=== PATIENT | male | born 1985 | race African-American/Black ===

== ENCOUNTER 2018-02-15 14:06 | Emergency (ER) | payer OTHER ==
[2018-02-15] MEDS: IBUPROFEN 800 MG TAB PO (15:14)
[2018-02-15] MEDS: AZITHROMYCIN 250 MG TAB PO (15:15)
[2018-02-15] MEDS: CEFTRIAXONE 250 MG INJ IM (15:16)
[2018-02-15 15:49] LABS: ADD UMIC YES; UR ASCORBIC ACID NEGATIVE (NEGATIVE); UR BACTERIA FEW /HPF (NONE SEEN); UR BILIRUBIN (Dip) NEGATIVE (NEGATIVE); UR BLOOD (Dip) 1+ mg/dL (NEGATIVE); UR CLARITY CLOUDY (CLEAR); UR COLOR YELLOW (YELLOW); UR GLUCOSE (Dip) NEGATIVE (NEGATIVE); UR KETONES (Dip) NEGATIVE (NEGATIVE); UR LEUKOCYTE ESTERASE (Dip) 3+ Leu/ul (NEGATIVE); UR NITRITE (Dip) NEGATIVE (NEGATIVE); UR RBC 12 /HPF (0-5); UR SPECIFIC GRAVITY (Dip) 1.025 (1.003-1.030); UR TOTAL PROTEIN (Dip) NEGATIVE (NEGATIVE); UR UROBILINOGEN (Dip) 1+ mg/dL (NEGATIVE); UR WBC > 182 /HPF (0-5)
== END 2018-02-15 16:09 | disposition home or self-care (01) ==
LOC: FTE 14:06
DX: A64 Unspecified sexually transmitted disease (principal); N39.0 Urinary tract infection, site not specified; Z20.2 Contact with and (suspected) exposure to infections with a predominantly sexual mode of transmission
CPT/HCPCS: 81001; 87086; 87591; 96372; 99284-25